=== PATIENT | female | born 1995 | race Caucasian/White ===

== ENCOUNTER → 2023-05-07 15:46 | Outpatient (BNVA) | payer SELFPAY | PROVIDERS: Family Provider Family Medicine; Visit Provider Emergency Medicine | DX: J02.9 Acute pharyngitis, unspecified (principal) | CPT/HCPCS: 87071; 87880 ==

== ENCOUNTER 2025-03-14 06:38 | Emergency (ER) | payer MEDICAID, SELFPAY ==
[2025-03-14 06:51] VITALS: BP 133/111; PULSE 76; RESP 18; TEMP 36.6; O2SAT 100; BMI 31.1
--- NOTE | 2025-03-14 06:53 | ECG_ITS ---
[facility] Test Date: 2025-03-14 Pat Name: Xenia Gonzales Department: Room: Gender: Female Occupational Work Experience Teacher: : 1995 Requested By: Naveen Mata Order Number: [id number] Reading MD: JALEEL BOLTON Measurements Intervals [place] Rate: 64 P: 37 IL: 201 QRS: 33 QRSD: 95 T: 1 QT: 415 QTc: 430 Interpretive Statements SINUS RHYTHM NONSPECIFIC T-WAVE ABNORMALITY No previous ECG available for comparison Electronically Signed On 03-14-2025 20:58:24 CDT by JALEEL BOLTON [id number] [id number]
--- NOTE | 2025-03-14 07:02 | W.ED.NAVMDI ---
HPI - Nausea/Vomiting/Diarrhea General: Chief complaint: Nausea/Vomiting/Diarrhea Stated complaint: n,v,abd pain,hands and feet numb/tingling Time Seen by Provider: 03/14/25 06:50 History of Present Illness: 29-year-old female presents to the emergency room via private vehicle. Patient is complaining of nausea vomiting that woke up around 3 AM. She is complaining of abdominal pain due to the persistent nausea and vomiting. She also has numbness and tingling of her hands and feet she is having carpopedal spasm when she first arrived she is tachypneic extremely anxious. Patient also started having some diarrhea this morning. 4 weeks ago she started on Zepbound/Mounjaro for weight loss Associated nausea: Yes Associated symtoms: Reports nausea; Denies chest pain or dysuria Related Data Home Medications ?Medication ?Instructions ?Recorded ?Confirmed escitalopram oxalate 10 mg tablet 10 mg PO DAILY 03/14/25 03/14/25 tirzepatide (weight loss) 5 mg/0.5 5 mg SUBCUT Q7D 03/14/25 03/14/25 mL subcutaneous pen injector (Zepbound) Previous Rx's ?Medication ?Instructions ?Recorded lorazepam 2 mg tablet (Ativan) 2 mg buccal TID PRN nausea and 03/14/25 vomiting #14 tabs olanzapine 10 mg disintegrating 10 mg PO .Every 8 hours PRN nausea 03/14/25 tablet (Zyprexa Zydis) and vomiting #10 tabs Allergies Allergy/AdvReac Type Severity Reaction Status Date / Time No Known Allergies Allergy Unverified 05/07/23 15:40 Review of Systems Const: Denies: fever(s) or chills Card: Denies: chest pain Resp: Denies: dyspnea GI: Reports: abdominal pain, nausea and vomiting; Denies: hematemesis, coffee ground emesis, hematochezia or melena : Denies: dysuria, urinary frequency or urinary urgency Musc: Denies: neck pain or back pain Skin/Breast: Denies: rash Physical Exam Const: ORIENTATION/CONSCIOUSNESS: Yes awake, Yes oriented to person, Yes oriented to place and Yes oriented to time HENMT: COMMON NORMALS: normocephalic, atraumatic and hearing grossly normal bilaterally HEAD & SCALP: normocephalic and atraumatic Resp: COMMON NORMALS: normal respiratory effort, No retractions, No use of accessory muscles and clear to auscultation bilaterally AUSCULTATION: clear to auscultation bilaterally Cardio: COMMON NORMALS: regular rate, regular rhythm and No murmurs present (Cardio) RATE: regular rate RHYTHM: regular rhythm GI: COMMON NORMALS: Soft to palpation and No hepatosplenomegaly present AUSCULTATION: Yes normoactive bowel sounds PALPATION: Yes Soft to palpation, No Tenderness to palpation present (GI), No Guarding due to palpation present (GI) and Yes No hepatosplenomegaly present Extremity: COMMON NORMALS: normal to inspection, capillary refill normal, no clubbing, cyanosis or edema, no calf tenderness and no pedal edema Neuro: SENSORIUM/ORIENTATION: Yes oriented to person, Yes oriented to place and Yes oriented to time Skin: COMMON NORMALS: no rashes or lesions noted GENERAL SKIN EXAM: no rashes or lesions noted Course Vital Signs: Vital signs: Vital Signs Temperature 97.8 F 03/14/25 06:51 Pulse Rate 62 03/14/25 09:00 Respiratory Rate 18 03/14/25 06:51 Blood Pressure 100/66 03/14/25 09:00 Pulse Oximetry 100 03/14/25 09:00 Oxygen Delivery Me thod Room Air 03/14/25 09:00 MDM - Nausea/Vomiting/Diarrhea Medical Decision Making Improved with Haldol and Benadryl. She was hyperventilating. In talking with her she is also used a lot of cannabis over the weekend which I think contributed to this significantly. Discussed with her cannabinoid hyperemesis syndrome. Will discharge her home with olanzapine Ativan to use as needed if has recurrence of symptoms. Medical Records I reviewed the patient's medical records. Lab Data I reviewed the patient's lab results. 03/14/25 07:00 03/14/25 07:00 Laboratory Results WBC 10.88 10^3/uL (3.29-11.43) 03/14/25 07:00 RBC 4.72 10^6/uL (3.85-5.65) 03/14/25 07:00 Hgb 14.50 g/dL (11.27-16.99) 03/14/25 07:00 Hct 42.7 % (36-47) 03/14/25 07:00 MCV 90.5 fl (85-98) 03/14/25 07:00 MCH 30.7 pg (27-33) 03/14/25 07:00 MCHC 34.0 g/dL (30-55) 03/14/25 07:00 RDW 11.9 % (12.1-15.1) L 03/14/25 07:00 Plt Count 364 10^3/cmm (157-399) 03/14/25 07:00 MPV 10.6 fL (7.4-10.4) H 03/14/25 07:00 Neut % (Auto) 49.2 % 03/14/25 07:00 Lymph % (Auto) 44.6 % 03/14/25 07:00 Clayton % (Auto) 3.6 % 03/14/25 07:00 Eos % (Auto) 1.7 % 03/14/25 07:00 Baso % (Auto) 0.6 % 03/14/25 07:00 Neut # (Auto) 5.36 10^3/uL (1.8-7.7) 03/14/25 07:00 Lymph # (Auto) 4.9 10^3/uL (0.8-4.8) H 03/14/25 07:00 [place] # (Auto) 0.4 10^3/uL (0.2-0.9) 03/14/25 07:00 Eos # (Auto) 0.2 10^3/uL (0.0-0.8) 03/14/25 07:00 Baso # (Auto) 0.1 10^3/uL (0.0-0.1) 03/14/25 07:00 Nucleated RBC % (auto) 0 % 03/14/25 07:00 Nucleated RBCs # 0.0 /100WBC 03/14/25 07:00 Specimen Type Arterial 03/14/25 06:55 Sample Site Radial, right 03/14/25 06:55 ABG pH 7.63 (7.35-7.45) H* 03/14/25 06:55 ABG pCO2 17.3 mmHg (35-45) L* 03/14/25 06:55 ABG pO2 117.0 mmHg (80.0-100.0) H 03/14/25 06:55 ABG PO2/FiO2 Ratio 557 03/14/25 06:55 ABG HCO3 18.0 mmol/L (22-26) L 03/14/25 06:55 ABG O2 Saturation > 99.1 03/14/25 06:55 ABG Base Excess -0.2 mmol/L (-2.0-2.0) 03/14/25 06:55 Patric Test Pos 03/14/25 06:55 A-a O2 Gradient 1.1 mmHg (5-10) L 03/14/25 06:55 Hematocrit 45.5 % (37-47) 03/14/25 06:55 Hgb O2 Saturation 97.5 % (95-100) 03/14/25 06:55 Carboxyhemoglobin 1.4 %THgb (0.4-20.1) 03/14/25 06:55 Methemoglobin 0.9 % (0.4-1.5) 03/14/25 06:55 Total Hemoglobin 14.9 g/dL (12-16) 03/14/25 06:55 Sodium 141.0 mmol/L (131-143) 03/14/25 06:55 Potassium 2.8 mmol/L (3.5-5.0) L 03/14/25 06:55 Glucose 134.0 mg/dL (70-115) H 03/14/25 06:55 Ionized Calcium 1.1 mmol/L (1.1-1.4) 03/14/25 06:55 O2 Delivery Device Room air 03/14/25 06:55 FiO2 21.0 % 03/14/25 06:55 Color Paste Mixing Supervisor ID [id number] 03/14/25 06:55 Sodium 140 mmol/L (136-145) 03/14/25 07:00 Potassium 3.0 mmol/L (3.5-5.1) L 03/14/25 07:00 Chloride 101 mmol/L (98-107) 03/14/25 07:00 Carbon Dioxide 17 mmol/L (22-29) L 03/14/25 07:00 Anion Gap 25.0 (5-19) H 03/14/25 07:00 BUN 12 mg/dL (6-20) 03/14/25 07:00 Creatinine 0.8 mg/dL (0.5-0.9) 03/14/25 07:00 GFR Calculation 85.4 mL/min (90-130) L 03/14/25 07:00 Glucose 132 mg/dL (65-115) H 03/14/25 07:00 Calculated Osmolality 292 mOsm/kg (285-295) 03/14/25 07:00 Calcium 9.9 mg/dL (8.5-10.5) 03/14/25 07:00 Magnesium 1.7 mg/dL (1.7-2.3) 03/14/25 07:00 Total Bilirubin 0.4 mg/dL (0.15-1.2) 03/14/25 07:00 AST 18 U/L (0-32) 03/14/25 07:00 ALT 12 U/L (0-33) 03/14/25 07:00 Alkaline Phosphatase 104 U/L (35-105) 03/14/25 07:00 Total Protein 8.0 g/dL (6.6-8.7) 03/14/25 07:00 Albumin 4.6 g/dL (3.5-5.2) 03/14/25 07:00 Globulin 3.4 g/dL (1.3-4.6) 03/14/25 07:00 HCG, Qual Negative (Negative) 03/14/25 07:00 Urine Color Yellow (Yellow) 03/14/25 07:00 Urine Appearance Clear (CLEAR) 03/14/25 07:00 Urine pH 8.0 (5-7) A 03/14/25 07:00 Ur Specific Paige 1.016 (1.005-1.030) 03/14/25 07:00 Urine Protein Negative (Negative) 03/14/25 07:00 Urine Glucose (UA) Negative (Normal) 03/14/25 07:00 Urine Ketones 2+ (Negative) H 03/14/25 07:00 Urine Blood 2+ (Negative) A 03/14/25 07:00 Urine Nitrate Negative (Negative) 03/14/25 07:00 Urine Bilirubin Negative (Negative) 03/14/25 07:00 Urine Urobilinogen 1.0 mg/dL (Negative) 03/14/25 07:00 Ur Leukocyte Esterase Trace (Negative) A 03/14/25 07:00 Urine RBC 11-20 /hpf (0-2) H 03/14/25 07:00 Urine WBC 11-20 /hpf (0-5) H 03/14/25 07:00 Ur Squamous Epith Cells 0-5 /hpf (0-5) 03/14/25 07:00 Amorphous Sediment Not Reportable 03/14/25 07:00 Urine Bacteria 2+ /hpf (NONE) H 03/14/25 07:00 Hyaline Casts 3.71 /lpf 03/14/25 07:00 All radiology interpretation(s) finalized by discharge Discharge Plan Discharge Patient Disposition: Home Clinical Impression: Cannabinoid hyperemesis syndrome, Hyperventilation Condition: Stable Prescriptions: New olanzapine [Zyprexa Zydis] 10 mg tablet,disintegrating 10 mg PO .Every 8 hours PRN (Reason: nausea and vomiting) Qty: 10 0RF lorazepam [Ativan] 2 mg tablet 2 mg buccal TID PRN (Reason: nausea and vomiting) Qty: 14 0RF No Action escitalopram oxalate 10 mg tablet 10 mg PO DAILY Zepbound 5 mg/0.5 mL pen injector 5 mg SUBCUT Q7D Discharge Orders: Discharge ED (Routine); Ordered 03/14/25 Ordered By: Naveen Luo Discharge Diet: Clear Liquid Discharge Activity: Increase activity as tolerated Patient Instructions: Opioid Safety, Pain Management Activity Restrictions/Additional Instructions: Thank you for choosing [facility] for your healthcare needs today. It is very important that you follow up as instructed or that you return to the Emergency Department should you have concerns or if your condition changes or worsens in any way. You were seen in the emergency room with complaints of nausea and vomiting. Based on your history and your laboratory studies as well as your reaction to medications it is most likely caused by cannabinoid hyperemesis syndrome. Recommend you decrease the amount of cannabinoid products you use. You were also hyperventilating this improved with the medications given as well follow-up with your primary care doctor as needed. You are given lorazepam and olanzapine to use as needed if you have recurrent nausea and vomiting. Print Language: Paraguayan Coding Level of Care Code ED Inside Sales Account Executive for Jodi Ellis
[2025-03-14 07:11] LABS: ABG PCO2 17.3 mmHg (35-45); ABG PH Result 7.63 (7.35-7.45); Alveolar-Arterial Oxygen Gradi 1.1 mmHg (5-10); Arterial Blood Gas Hematocrit 45.5 % (37-47); Base Excess ABG -0.2 mmol/L (-2.0-2.0); Blood Gas Allen Test Pos; Blood Gas Operator Identificat MBB; Blood Gas Sample Site Radial, right; Blood Gas Sample Type Arterial; Carboxyhemoglobin 1.4 %THgb (0.4-20.1); HGB O2 Sat 97.5 % (95-100); Ionized Calcium Level - ABG 1.1 mmol/L (1.1-1.4); Methemoglobin 0.9 % (0.4-1.5); Oxygen Device ROOM AIR; Oxygen Saturation ABG > 99.1; PO2 FiO2 Ratio Arterial Blood 557; Potassium Level - ABG 2.8 mmol/L (3.5-5.0); Total Hemoglobin 14.9 g/dL (12-16)
[2025-03-14 07:14] LABS: Basophils # 0.1 10^3/uL (0.0-0.1); Basophils % 0.6 %; Eosinophils # 0.2 10^3/uL (0.0-0.8); Eosinophils % 1.7 %; Hematocrit 42.7 % (36-47); Lymphocytes # 4.9 10^3/uL (0.8-4.8); Lymphocytes % 44.6 %; Mean Corpuscular Hemoglobin 30.7 pg (27-33); Mean Corpuscular Volume 90.5 fl (85-98); Mean Platelet Volume 10.6 fL (7.4-10.4); Monocytes # 0.4 10^3/uL (0.2-0.9); Monocytes % 3.6 %; Neutrophils # 5.36 10^3/uL (1.8-7.7); Neutrophils % 49.2 %; Nucleated Red Blood Cells % 0 %; Platelet Count 364 10^3/cmm (157-399); Red Blood Count 4.72 10^6/uL (3.85-5.65); Red Cell Distribution Width 11.9 % (12.1-15.1); White Blood Count 10.88 10^3/uL (3.29-11.43)
[2025-03-14 07:23] LABS: Bilirubin Urine Negative (Negative); Blood Urine 2+ (Negative); Glucose Urine UA Negative (Normal); Ketones Urine 2+ (Negative); Leukocyte Esterase Urine Trace (Negative); Nitrate Urine Negative (Negative); Protein Urine Negative (Negative); Specific Gravity, Urine 1.016 (1.005-1.030); Urine Appearance Clear (CLEAR); Urine Color Yellow (Yellow)
[2025-03-14 07:25] LABS: Add Urine Microscopic? YES; Bacteria Urine 2+ /hpf; Hyaline Casts Urine 3.71 /lpf; Squamous Epithelial Cell Urine 0-5 /hpf (0-5)
[2025-03-14 07:28] LABS: HCG, Serum Qual Negative (Negative)
[2025-03-14] MEDS: sodium chloride 0.9% 1,000 ML 999 ML IV ×2 (07:32→09:04)
[2025-03-14] MEDS: diphenhydrAMINE 50 mg/mL SDV 1mL IVP (07:33)
[2025-03-14] MEDS: haloperidol inj 5 mg/mL INJ 1 mL 2.5 MG IVP (07:34)
[2025-03-14 07:38] LABS: UA Slide Review UA Slide Review Perf
[2025-03-14 07:39] LABS: Add Urine Culture? Yes
[2025-03-14 07:41] LABS: Alanine Aminotransferase 12 U/L (0-33); Albumin Level 4.6 g/dL (3.5-5.2); Alkaline Phosphatase 104 U/L (35-105); Aspartate Amino Transferase 18 U/L (0-32); Blood Urea Nitrogen 12 mg/dL (6-20); Calcium 9.9 mg/dL (8.5-10.5); Carbon Dioxide 17 mmol/L (22-29); Creatinine Clr Calc Pharmacy 100.6614; Globulin 3.4 g/dL (1.3-4.6); Glomerular Filtration Rate 85.4 mL/min (90-130); Glucose 132 mg/dL (65-115); Total Bilirubin 0.4 mg/dL (0.15-1.2)
[2025-03-14 07:51] VITALS: BP 107/66; PULSE 64; O2SAT 99
[2025-03-14 08:08] LABS: Chloride 101 mmol/L (98-107); Osmolality Calculated 292 mOsm/kg (285-295); Sodium 140 mmol/L (136-145)
[2025-03-14 09:00] VITALS: BP 100/66; PULSE 62; O2SAT 100
[2025-03-14] MEDS: cefTRIAXone 1,000 mg SDV 1000 MG IVP (09:06)
[2025-03-14] MEDS: potassium chloride oral liq 20 mEq/15 mL UDC 40 MEQ PO (09:52)
[2025-03-14 10:36] LABS: Magnesium 1.7 mg/dL (1.7-2.3)
== END 2025-03-14 11:29 | disposition home or self-care (01) ==
PROVIDERS: Emergency Provider Family Medicine
DX: R11.2 Nausea with vomiting, unspecified (principal); R06.4 Hyperventilation
CPT/HCPCS: 36415; 36600; 80051; 80053; 81001; 82330; 82805; 83735; 84703; 85025; 87086; 93005; 96361; 96374; 96375; 99284; J0696; J1200; J1630; J7030; J9999

== ENCOUNTER 2025-07-03 16:46 | Emergency (ER) | payer MEDICAID, SELFPAY ==
--- OUTSIDE RECORDS SUMMARY | 2025-07-03 16:52 | XMS_ITS | Clinical Summary ---
[facility] Address [address] [place] [address] Care Team Providers Care Marine Service Operator Name Role Phone Unavailable Primary Care Provider Unavailabl e Immunizations Immunization Administration Dates Next Due (M-M-R II/PRIORIX)(12 MO UP) MEASLES, MUMPS AND RUBELLA VIRUS VACCINE, 0.5 ML IM/SUBCUT 06/28/2002,04/26/1999 (VARIVAX)(12 MOS UP)VARICELL A VIRUS VACCINE (PF) 0.5 ML, SUB CUT 06/28/2002 Dt Dtp Dtap Vaccine 06/28/2002, 9,04/26/1999,1996 HIB, Unspecified Formulation 04/26/1999,06/13/19 97 Hepatitis B Vaccine 06/13/1999,06/13/1997,1995 IPV/OPV 06/28/2002, 9,04/26/1999,1996 Social History Tobacco Use Types Packs/Day Years Used Date Smoking Tobacco: Never Assessed Comments Unknown Sex and Gender Information Value Date Recorded Sex Assigned at Not on file Legal Sex Female 3:13 AM THERAPIST PHYSICAL Gender Identity Not on file Sexual Orientation Not on file Plan of Treatment Health Maintenance Due Date Last Done Comments DTAP/TDAP/TD VACCINES (5 - Tdap) 2007 06/28/2002, 06/13/1999, 04/26/1999, Additional history exists HPV VACCINES (1 - 3-dose series) 2011 CERVICAL CANCER SCREENING 2017 HPV/Cotest (21-29) 2017 PAP SMEAR 2017 INFLUENZA VACCINE (#1) 2025 HEPATITIS B VACCINES Completed 06/13/1999, 06/13/1997, 1996 Insurance MEDICAID [id number]
--- OUTSIDE RECORDS SUMMARY | 2025-07-03 16:52 | XMS_ITS | Encounter Summary ---
Author Organization [facility] Address [address] [place] [address] Care Team Providers Care Faculty Research Physician Name Role Phone Unavailable Primary Care Provider Unavailabl e Encounter Details Date Type Department Care Team (Latest Contact Info) Description 11/19/2004 Outpatient Historical [facility] Dermatology- [facility] [place] [address] [place] [address] Bautista Kenyon MD NO ADDRESS ON FILE VIRAL WARTS NOS (Primary Dx) Social History Tobacco Use Types Packs/Day Years Used Date Smoking Tobacco: Never Assessed Comments Unknown Sex and Gender Information Value Date Recorded Sex Assigned at Not on file Legal Sex Female 3:13 AM HEALTH CARE FACILITIES INSPECTOR Gender Identity Not on file Sexual Orientation Not on file documented as of this encounter Plan of Treatment Not on file documented as of this encounter Visit Diagnoses Diagnosis Viral warts, unspecified- Primary documented in this encounter
--- OUTSIDE RECORDS SUMMARY | 2025-07-03 16:52 | XMS_ITS | Encounter Summary ---
Author Organization [facility] Address [address] [place] [address] Care Team Providers Care Loading And Unloading Supervisor Name Role Phone Unavailable Primary Care Provider Unavailabl e Encounter Details Date Type Department Care Team (Latest Contact Info) Description 03/14/2005 Outpatient Historical [facility] Dermatology- [facility] [address] [place] [address] Bautista Kenyon MD NO ADDRESS ON FILE VIRAL WARTS NOS (Primary Dx) Social History Tobacco Use Types Packs/Day Years Used Date Smoking Tobacco: Never Assessed Comments Unknown Sex and Gender Information Value Date Recorded Sex Assigned at Not on file Legal Sex Female 3:13 AM RN CARDIAC CATH Gender Identity Not on file Sexual Orientation Not on file documented as of this encounter Plan of Treatment Not on file documented as of this encounter Visit Diagnoses Diagnosis Viral warts, unspecified- Primary documented in this encounter
--- OUTSIDE RECORDS SUMMARY | 2025-07-03 16:52 | XMS_ITS | Encounter Summary ---
Author Organization [facility] Address [address] [place] [address] Care Team Providers Care Squirrel Worker Name Role Phone Unavailable Primary Care Provider Unavailabl e Encounter Details Date Type Department Care Team (Latest Contact Info) Description 10/19/2004 Outpatient Historical [facility] Dermatology- [facility] [address] [place] [address] Bautista Kenyon MD NO ADDRESS ON FILE VIRAL WARTS NOS (Primary Dx) Social History Tobacco Use Types Packs/Day Years Used Date Smoking Tobacco: Never Assessed Comments Unknown Sex and Gender Information Value Date Recorded Sex Assigned at Not on file Legal Sex Female 3:13 AM ORCHID GROWER Gender Identity Not on file Sexual Orientation Not on file documented as of this encounter Plan of Treatment Not on file documented as of this encounter Visit Diagnoses Diagnosis Viral warts, unspecified- Primary documented in this encounter
--- OUTSIDE RECORDS SUMMARY | 2025-07-03 16:52 | XMS_ITS | Encounter Summary ---
Author Organization [facility] Address [address] [place] [address] Care Team Providers Care Telemetry Rn Name Role Phone Unavailable Primary Care Provider Unavailabl e Encounter Details Date Type Department Care Team (Latest Contact Info) Description 04/04/2005 Outpatient Historical [facility] Dermatology- [facility] [address] [place] [address] Bautista Kenyon MD NO ADDRESS ON FILE VIRAL WARTS NOS (Primary Dx) Social History Tobacco Use Types Packs/Day Years Used Date Smoking Tobacco: Never Assessed Comments Unknown Sex and Gender Information Value Date Recorded Sex Assigned at Not on file Legal Sex Female 3:13 AM CLIENT ACCOUNT REPRESENTATIVE Gender Identity Not on file Sexual Orientation Not on file documented as of this encounter Plan of Treatment Not on file documented as of this encounter Visit Diagnoses Diagnosis Viral warts, unspecified- Primary documented in this encounter
--- OUTSIDE RECORDS SUMMARY | 2025-07-03 16:52 | XMS_ITS | Encounter Summary ---
Author Organization [facility] Address [address] [place] [address] Care Team Providers Care Community Arts Centre Manager Name Role Phone Unavailable Primary Care Provider Unavailabl e Encounter Details Date Type Department Care Team (Latest Contact Info) Description 12/14/2004 Outpatient Historical [facility] Dermatology- [facility] [address] [place] [address] Bautista Kenyon MD NO ADDRESS ON FILE VIRAL WARTS NOS (Primary Dx) Social History Tobacco Use Types Packs/Day Years Used Date Smoking Tobacco: Never Assessed Comments Unknown Sex and Gender Information Value Date Recorded Sex Assigned at Not on file Legal Sex Female 3:13 AM COMPUTATIONAL CHEMIST Gender Identity Not on file Sexual Orientation Not on file documented as of this encounter Plan of Treatment Not on file documented as of this encounter Visit Diagnoses Diagnosis Viral warts, unspecified- Primary documented in this encounter
[2025-07-03 17:03] VITALS: BP 121/79; PULSE 105; RESP 18; TEMP 37.3; O2SAT 100
--- NOTE | 2025-07-03 17:19 | XRR_ITS ---
PROCEDURE INFORMATION: Exam: XR Abdomen Exam date and time: 07/03/2025 5:32 PM Age: 29 years old Clinical indication: Constipation; Prior surgery; Surgery date: 6+ months; Surgery type: Csection x 2; Additional info: Constipation; Abdominal pain; Nausea; Recent increase in dose ofweight loss shot; Iud insertion x 1 mo ago TECHNIQUE: Imaging protocol: Radiologic exam of the abdomen. Views: Frontal supine view of the abdomen. 1 View. COMPARISON: No relevant prior studies available. FINDINGS: Gastrointestinal tract: Moderate stool in the ascending colon. Normal bowel gas pattern. Organs: IUD overlies the pelvis. Bones/joints: Unremarkable. XR/XR KUB [id number] IMPRESSION: Moderate stool in the proximal colon.
--- NOTE | 2025-07-03 17:21 | W.ED.NAVMDI ---
HPI - Nausea/Vomiting/Diarrhea General: Chief complaint: Nausea/Vomiting/Diarrhea Stated complaint: N/V, CONSTIPATION Time Seen by Provider: 07/03/25 17:16 Source: patient Mode of arrival: ambulatory Limitations: no limitations History of Present Illness: 29-year-old female who states that she recently increased her weight loss medication from 5-7.5 states of last 2 days she has been having nausea vomiting some abdominal cramping states she is also had some slight constipation. She denies any severe abdominal pain she denies any fevers or dysuria denies any worse improving factors. She states she had a similar problem when she had increased it before Associated nausea: Yes Associated symtoms: Reports nausea; Denies chest pain, dysuria or headache(s) Related Data Home Medications ?Medication ?Instructions ?Recorded ?Confirmed tirzepatide (weight loss) 5 mg/0.5 5 mg SUBCUT Q7D 03/14/25 03/14/25 mL subcutaneous pen injector (Zepbound) methadone 40 mg soluble tablet 85 mg PO DAILY 06/20/25 06/20/25 ondansetron HCl 4 mg tablet 4 mg PO DAILY 06/20/25 06/20/25 Previous Rx's ?Medication ?Instructions ?Recorded ondansetron 4 mg disintegrating 4 mg PO Q6H PRN nausea and 07/03/25 tablet vomiting #14 tabs polyethylene glycol 3350 17 gram 17 g PO DAILY PRN constipation #14 07/03/25 oral powder packet (Miralax) ea Allergies Allergy/AdvReac Type Severity Reaction Status Date / Time No Known Allergies Allergy Unverified 06/20/25 07:27 Review of Systems Const: Denies: fever(s), chills or body aches Eyes: Denies: blurry vision or eye discomfort ENMT: Denies: throat pain or dental pain Card: Denies: chest pain Resp: Denies: dyspnea GI: Reports: abdominal pain, nausea, vomiting and constipation; Denies: diarrhea : Denies: dysuria Musc: Denies: neck pain or back pain Skin/Breast: Denies: rash Neuro: Denies: headache(s) PFSH ED PFSH: Medical History Secondary amenorrhea Methadone dependence Family History (Updated 06/17/25 @ 11:03 by Nikki Crews RN) Father Hypertension Hyperlipidemia Diabetes Sister Hypertension Social History Smoking and tobacco/nicotine status: never used tobacco/nicotine Physical Exam Const: COMMON NORMALS: no acute distress, patient oriented x3 and healthy appearing HENMT: COMMON NORMALS: normocephalic and atraumatic HEAD & SCALP: normocephalic and atraumatic Eye: COMMON NORMALS: conjunctivae normal CONJUNCTIVA: Yes conjunctivae normal Neck/C-Spine: COMMON NORMALS: full ROM and supple Chest: COMMONS NORMALS: normal inspection of the chest and normal palpation of entire chest wall Resp: COMMON NORMALS: normal respiratory effort, No retractions, No use of accessory muscles and clear to auscultation bilaterally AUSCULTATION: clear to auscultation bilaterally Cardio: COMMON NORMALS: regular rate, regular rhythm and No murmurs present (Cardio) RATE: regular rate RHYTHM: regular rhythm GI: COMMON NORMALS: Normal to inspection, nondistended, normoactive bowel sounds present, Soft to palpation, non-tender and no masses PALPATION: Yes Soft to palpation Extremity: COMMON NORMALS: normal to inspection and full ROM Neuro: COMMON NORMALS: patient oriented x3, moves all extremities and no focal motor deficits Psych: COMMON NORMALS: mental status grossly normal, Normal thought process present and cooperative THOUGHT PROCESS: Normal thought process present Skin: COMMON NORMALS: no rashes or lesions noted and no wounds GENERAL SKIN EXAM: no rashes or lesions noted Course Vital Signs: Vital signs: Vital Signs Temperature 99.1 F 07/03/25 17:03 Pulse Rate 77 07/03/25 19:54 Respiratory Rate 16 07/03/25 19:54 Blood Pressure 124/61 07/03/25 19:54 Pulse Oximetry 98 07/03/25 19:54 Oxygen Delivery Me thod Room Air 07/03/25 17:03 MDM - Nausea/Vomiting/Diarrhea Medical Decision Making Patient presents here with vomiting she also some constipation blood work x-ray is normal besides constipation she has no signs of acute surgical abdomen her abdomen soft nontender she feels much improved here after meds she is stable for discharge follow-up PCP return if worsening. Medical Records I reviewed the patient's medical records. Lab Data I reviewed the patient's lab results. 07/03/25 17:26 07/03/25 17: Radiology Impressions KUB X-Ray 07/03/25 17:19 IMPRESSION: Moderate stool in the proximal colon. Laboratory Results WBC 6.65 10^3/uL (3.29-11.43) 07/03/25 17: RBC 4.36 10^6/uL (3.85-5.65) 07/03/25: Hgb 13.50 g/dL (11.27-16.99) 07/03/25: Hct 38.7 % (36-47) 07/03/25 17: MCV 88.8 fl (85-98) 07/03/25: MCH 31.0 pg (27-33) 07/03/25: MCHC 34.9 g/dL (30-55) 07/03/25: RDW 12.3 % (12.1-15.1) 07/03/25: Plt Count 256 10^3/cmm (157-399) 07/03/25: MPV 11.1 fL (7.4-10.4) H 07/03/25: Neut % (Auto) 87.0 % 07/03/25: Lymph % (Auto) 8.1 % 07/03/25: [place] % (Auto) 4.2 % 07/03/25: Eos % (Auto) 0.0 % 07/03/25: Baso % (Auto) 0.2 % 07/03/25: Neut # (Auto) 5.79 10^3/uL (1.8-7.7) 07/03/25: Lymph # (Auto) 0.5 10^3/uL (0.8-4.8) L 07/03/25: [place] # (Auto) 0.3 10^3/uL (0.2-0.9) 07/03/25: Eos # (Auto) 0.0 10^3/uL (0.0-0.8) 07/03/25: Baso # (Auto) 0.0 10^3/uL (0.0-0.1) 08/17/25 17:26 Nucleated RBC % (auto) 0 % 07/03/25 17: Nucleated RBCs # 0.0 /100WBC 07/03/25 17: Sodium 139 mmol/L (136-145) 07/03/25 17: Potassium 3.2 mmol/L (3.5-5.1) L 07/03/25 17: Chloride 100 mmol/L (98-107) 07/03/25 17: Carbon Dioxide 24 mmol/L (22-29) 07/03/25 17: Anion Gap 18.2 (5-19) 07/03/25 17: BUN 14 mg/dL (6-20) 07/03/25 17: Creatinine 0.7 mg/dL (0.5-0.9) 07/03/25 17: GFR Calculation 99.6 mL/min (90-130) 07/03/25 17: Glucose 103 mg/dL (65-115) 07/03/25 17: Calculated Osmolality 289 mOsm/kg (285-295) 07/03/25 17: Calcium 9.5 mg/dL (8.5-10.5) 07/03/25 17: Total Bilirubin 0.4 mg/dL (0.15-1.2) 07/03/25 17: AST 16 U/L (0-32) 07/03/25 17: ALT 10 U/L (0-33) 07/03/25 17: Alkaline Phosphatase 90 U/L (35-105) 07/03/25 17: Total Protein 7.9 g/dL (6.6-8.7) 07/03/25 17: Albumin 4.6 g/dL (3.5-5.2) 07/03/25 17: Globulin 3.3 g/dL (1.3-4.6) 07/03/25 17: Lipase 30 U/L (13-60) 07/03/25 17: HCG, Qual Negative (Negative) 07/03/25 17:26 Urine Color Yellow (Yellow) 07/03/25 18:00 Urine Appearance Clear (CLEAR) 07/03/25 18:00 Urine pH 7.5 (5-7) 07/03/25 18:00 Ur Specific [place] 1.024 (1.005-1.030) 07/03/25 18:00 Urine Protein Trace (Negative) A 07/03/25 18:00 Urine Glucose (UA) Negative (Normal) 07/03/25 18:00 Urine Ketones 4+ (Negative) 07/03/25 18:00 Urine Blood 2+ (Negative) A 07/03/25 18:00 Urine Nitrate Negative (Negative) 07/03/25 18:00 Urine Bilirubin Negative (Negative) 07/03/25 18:00 Urine Urobilinogen 1.0 mg/dL (Negative) 07/03/25 18:00 Ur Leukocyte Esterase Negative (Negative) 07/03/25 18:00 Urine RBC 5-10 /hpf (0-2) H 07/03/25 18:00 Urine WBC 0-4 /hpf (0-5) H 07/03/25 18:00 Ur Squamous Epith Cells 10-15 /hpf (0-5) H 07/03/25 18:00 Amorphous Sediment Not Reportable 07/03/25 18:00 Urine Bacteria 2+ /hpf (NONE) H 07/03/25 18:00 Hyaline Casts 5-10 /lpf H 07/03/25 18:00 Urine Mucus 2+ /hpf 07/03/25 18:00 All radiology interpretation(s) finalized by discharge Discharge Plan Discharge Patient Disposition: Home Clinical Impression: Vomiting, Constipation Condition: Stable Prescriptions: New ondansetron 4 mg tablet,disintegrating 4 mg PO Q6H PRN (Reason: nausea and vomiting) Qty: 14 0RF polyethylene glycol 3350 [Miralax] 17 gram powder in packet 17 g PO DAILY PRN (Reason: constipation) Qty: 14 0RF No Action ondansetron HCl 4 mg tablet 4 mg PO DAILY methadone 40 mg tablet,soluble 85 mg PO DAILY Zepbound 5 mg/0.5 mL pen injector 5 mg SUBCUT Q7D Discharge Orders: Discharge ED (Routine); Ordered 07/03/25 Ordered By: Babak Pérez Referrals: Allyson Wooten PA [Primary Care Provider, Physicians Looping Inspector] - 4-7 days Discharge Diet: Advance as tolerated Discharge Activity: Resume usual activity Patient Instructions: Constipation (ED), Acute Nausea and Vomiting (ED) Print Language: Swedish Coding Level of Care Code ED Seat Joiner for Chg Rhonda
[2025-07-03 17:33] LABS: Hematocrit 38.7 % (36-47); Hemoglobin 13.50 g/dL (11.27-16.99); Mean Corpuscular HGB Conc 34.9 g/dL (30-55); Mean Corpuscular Hemoglobin 31.0 pg (27-33); Mean Corpuscular Volume 88.8 fl (85-98); Nucleated Red Blood Cells % 0 %; Platelet Count 256 10^3/cmm (157-399); Red Blood Count 4.36 10^6/uL (3.85-5.65); White Blood Count 6.65 10^3/uL (3.29-11.43)
[2025-07-03 17:47] LABS: HCG, Serum Qual Negative (Negative)
[2025-07-03] MEDS: ondansetron 2 mg/ML SDV 2 mL 4 MG IVP (17:47)
[2025-07-03 18:06] LABS: Alanine Aminotransferase 10 U/L (0-33); Albumin Level 4.6 g/dL (3.5-5.2); Alkaline Phosphatase 90 U/L (35-105); Anion Gap 18.2 (5-19); Aspartate Amino Transferase 16 U/L (0-32); Blood Urea Nitrogen 14 mg/dL (6-20); Calcium 9.5 mg/dL (8.5-10.5); Carbon Dioxide 24 mmol/L (22-29); Chloride 100 mmol/L (98-107); Creatinine Clr Calc Pharmacy 104.7600; Globulin 3.3 g/dL (1.3-4.6); Glucose 103 mg/dL (65-115); Lipase 30 U/L (13-60); Osmolality Calculated 289 mOsm/kg (285-295); Potassium 3.2 mmol/L (3.5-5.1); Sodium 139 mmol/L (136-145); Total Protein 7.9 g/dL (6.6-8.7)
[2025-07-03] MEDS: lactulose oral liq 20 gm/30 mL UDC 30 GM PO (18:11)
[2025-07-03 18:19] LABS: Glucose Urine UA Negative (Normal); Nitrate Urine Negative (Negative); Specific Gravity, Urine 1.024 (1.005-1.030)
[2025-07-03 18:35] VITALS: BP 118/76; PULSE 83; O2SAT 99
[2025-07-03 18:45] LABS: UA Manual Slide Review YES
[2025-07-03 18:46] LABS: Add Urine Microscopic? YES
[2025-07-03] MEDS: diphenhydrAMINE 50 mg/mL SDV 1mL IVP (18:52)
[2025-07-03] MEDS: metoclopramide 5 mg/mL SDV 2 mL 10 MG IVP (18:52)
[2025-07-03 19:54] VITALS: BP 124/61; PULSE 77; RESP 16; O2SAT 98
== END 2025-07-03 19:55 | disposition home or self-care (01) ==
PROVIDERS: Emergency Provider Emergency Medicine; PCP Physician Assistant
DX: R11.10 Vomiting, unspecified (principal); K59.00 Constipation, unspecified
CPT/HCPCS: 36415; 74018; 80053; 81001; 83690; 84703; 85025; 96361; 96374; 96375; 99284; J1200; J2405; J2765; J7030; J9999

== ENCOUNTER 2025-07-04 10:32 | Emergency (ER) | payer MEDICAID, SELFPAY ==
[2025-07-04 10:36] VITALS: BP 119/81; PULSE 96; TEMP 36.8; O2SAT 99; BMI 25.6
--- OUTSIDE RECORDS SUMMARY | 2025-07-04 10:36 | XMS_ITS | Encounter Summary ---
Author Organization [facility] Address [address] [place] [address] Care Team Providers Care Geomatics Professor Name Role Phone Unavailable Primary Care Provider Unavailabl e Encounter Details Date Type Department Care Team (Latest Contact Info) Description 10/19/2004 Outpatient Historical [facility] Dermatology- [facility] [address] [place] [address] Bautista Kenyon MD NO ADDRESS ON FILE VIRAL WARTS NOS (Primary Dx) Social History Tobacco Use Types Packs/Day Years Used Date Smoking Tobacco: Never Assessed Comments Unknown Sex and Gender Information Value Date Recorded Sex Assigned at Not on file 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
--- OUTSIDE RECORDS SUMMARY | 2025-07-04 10:36 | XMS_ITS | Encounter Summary ---
Author Organization [facility] Address [address] [place] [address] Care Team Providers Care Drum Sander Offbearer Name Role Phone Unavailable Primary Care Provider Unavailabl e Encounter Details Date Type Department Care Team (Latest Contact Info) Description 11/19/2004 Outpatient Historical [facility] Dermatology- 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
--- OUTSIDE RECORDS SUMMARY | 2025-07-04 10:36 | XMS_ITS | Encounter Summary ---
Author Organization [facility] Address [address] [place] [address] Care Team Providers Care Crew Person Name Role Phone Unavailable Primary Care Provider Unavailabl e Encounter Details Date Type Department Care Team (Latest Contact Info) Description 03/14/2005 Outpatient Historical [facility] Dermatology- [facility] [place] [address] [place] [address] Bautista Kenyon MD NO ADDRESS ON FILE VIRAL WARTS NOS (Primary Dx) Social History Tobacco Use Types Packs/Day Years Used Date Smoking Tobacco: Never Assessed Comments Unknown Sex and Gender Information Value Date Recorded Sex Assigned at Not on file 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
--- OUTSIDE RECORDS SUMMARY | 2025-07-04 10:36 | XMS_ITS | Clinical Summary ---
Author Organization [facility] Address [address] 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
--- OUTSIDE RECORDS SUMMARY | 2025-07-04 10:36 | XMS_ITS | Encounter Summary ---
Author Organization [facility] Address [address] [place] [address] Care Team Providers Care Flight Communications Officer Name Role Phone Unavailable Primary Care Provider Unavailabl e Encounter Details Date Type Department Care Team (Latest Contact Info) Description 04/04/2005 Outpatient Historical [facility] Dermatology- [facility] [place] [address] [place] [address] Bautista Kneyon MD NO ADDRESS ON FILE VIRAL WARTS NOS (Primary Dx) Social History Tobacco Use Types Packs/Day Years Used Date Smoking Tobacco: Never Assessed Comments Unknown Sex and Gender Information Value Date Recorded Sex Assigned at Not on file 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
--- OUTSIDE RECORDS SUMMARY | 2025-07-04 10:36 | XMS_ITS | Encounter Summary ---
Author Organization [facility] Address [address] [place] [address] Care Team Providers Care Cad Draftsman Name Role Phone Unavailable Primary Care Provider Unavailabl e Encounter Details Date Type Department Care Team (Latest Contact Info) Description 12/14/[address] 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
[2025-07-04 11:45] LABS: Hematocrit 38.7 % (36-47); Hemoglobin 13.70 g/dL (11.27-16.99); Mean Corpuscular HGB Conc 35.4 g/dL (30-55); Mean Corpuscular Hemoglobin 32.1 pg (27-33); Mean Corpuscular Volume 90.6 fl (85-98); Nucleated Red Blood Cells % 0 %; Platelet Count 241 10^3/cmm (157-399); Red Blood Count 4.27 10^6/uL (3.85-5.65); White Blood Count 5.77 10^3/uL (3.29-11.43)
[2025-07-04 12:04] LABS: Alanine Aminotransferase 11 U/L (0-33); Albumin Level 4.8 g/dL (3.5-5.2); Alkaline Phosphatase 89 U/L (35-105); Anion Gap 19.1 (5-19); Aspartate Amino Transferase 18 U/L (0-32); Blood Urea Nitrogen 9 mg/dL (6-20); Calcium 9.4 mg/dL (8.5-10.5); Carbon Dioxide 22 mmol/L (22-29); Chloride 101 mmol/L (98-107); Creatinine Clr Calc Pharmacy 122.2201; Globulin 3.2 g/dL (1.3-4.6); Glucose 95 mg/dL (65-115); HCG, Serum Qual Negative (Negative); Lipase 32 U/L (13-60); Osmolality Calculated 286 mOsm/kg (285-295); Potassium 3.1 mmol/L (3.5-5.1); Sodium 139 mmol/L (136-145); Total Protein 8.0 g/dL (6.6-8.7)
--- NOTE | 2025-07-04 12:18 | W.ED.NAVMDI ---
HPI - Nausea/Vomiting/Diarrhea General: Chief complaint: Nausea/Vomiting/Diarrhea Stated complaint: n/v, constipation, dehydration Time Seen by Provider: 07/04/25 12:03 Source: patient Mode of arrival: ambulatory Limitations: no limitations History of Present Illness: Patient is a 29-year-old female presents to ED today with a complaint of intractable nausea and vomiting. Patient was seen yesterday for same complaint. She states symptoms started approximately 2 days ago. She feels like it is possibly related to increasing her Zepbound from 5 mg to 7.5 mg. She states she is on this through her primary care provider, Allyson Wooten PA-C for weight loss. She also states her nausea and vomiting is worse as she has not been able to hold down her methadone and thinks she might have some withdrawal symptoms from that. She has also been diagnosed with cannabinoid hyperemesis syndrome previously. Patient is not complaining of abdominal pain. She arrives anxious appearing but with stable vital signs. MD elicited complaint: nausea and vomiting Onset (ago): day(s) Associated nausea: Yes Location of pain: None Severity: moderate Exacerbating factors: eating Relieving factors: none Associated symtoms: Reports nausea; Denies chest pain, dizziness, dysuria, fatigue, headache(s) or malaise Related Data Home Medications ?Medication ?Instructions ?Recorded ?Confirmed tirzepatide (weight loss) 5 mg/0.5 5 mg SUBCUT Q7D 03/14/25 03/14/25 mL subcutaneous pen injector (Zepbound) methadone 40 mg soluble tablet 85 mg PO DAILY 06/20/25 06/20/25 ondansetron HCl 4 mg tablet 4 mg PO DAILY 06/20/25 06/20/25 Previous Rx's ?Medication ?Instructions ?Recorded ondansetron 4 mg disintegrating 4 mg PO Q6H PRN nausea and 07/03/25 tablet vomiting #14 tabs polyethylene glycol 3350 17 gram 17 g PO DAILY PRN constipation #14 07/03/25 oral powder packet (Miralax) ea metoclopramide HCl 10 mg tablet 10 mg PO Q6H #15 tabs 07/04/25 (Reglan) Allergies Allergy/AdvReac Type Severity Reaction Status Date / Time No Known Allergies Allergy Verified 07/04/25 10:42 Review of Systems Const: Reports: chills ( cold sweats ); Denies: fever(s), body aches, fatigue or malaise Card: Denies: chest pain Resp: Denies: dyspnea GI: Reports: nausea, vomiting and constipation; Denies: abdominal pain or hematemesis : Denies: flank pain, difficulty voiding, dysuria, urinary frequency, urinary urgency or urinary hesitancy Musc: Denies: neck pain, back pain, extremity pain, extremity swelling, joint pain, joint swelling or joint redness Skin/Breast: Denies: rash Neuro: Denies: headache(s), numbness in extremities, weakness in extremities, sensory changes or dizziness [facility] ED PFSH: Medical History Secondary amenorrhea Methadone dependence Family History Father Hypertension Hyperlipidemia Diabetes Sister Hypertension Social History Smoking and tobacco/nicotine status: never used tobacco/nicotine Physical Exam Const: COMMON NORMALS: no acute distress, average body habitus, patient oriented x3, no limitations, healthy appearing, alert and well nourished GENERAL APPEARANCE: cooperative and anxious ORIENTATION/CONSCIOUSNESS: Yes awake, Yes oriented to person, Yes oriented to place and Yes oriented to time Eye: COMMON NORMALS: no scleral icterus Resp: COMMON NORMALS: normal respiratory effort and clear to auscultation bilaterally AUSCULTATION: clear to auscultation bilaterally Cardio: COMMON NORMALS: regular rate and regular rhythm RATE: regular rate RHYTHM: regular rhythm GI: COMMON NORMALS: Normal to inspection, nondistended, normoactive bowel sounds present, Soft to palpation, No hepatosplenomegaly present and no masses INSPECTION: Yes normal to inspection AUSCULTATION: Yes normoactive bowel sounds PALPATION: Yes Soft to palpation, Yes Tenderness to palpation present (GI) (mild generalized discomfort-non surgical abdomen ), No Guarding due to palpation present (GI), No Rigid due to palpation and Yes No hepatosplenomegaly present : COMMON NORMALS: Yes no CVA tenderness BLADDER/KIDNEY EXAM: Yes no CVA tenderness Back/Pelvis: COMMON NORMALS: no CVA tenderness Extremity: GENERAL: Yes normal exam except as noted Neuro: JENN COMA SCALE: document GCS findings [place] coma scale eye opening: Spontaneous [place] coma scale verbal response: Orientated Jenn coma scale motor response: Obey commands [place] coma scale total score: 15 COMMON NORMALS: patient oriented x3, moves all extremities, no focal motor deficits, no sensory deficits noted and gait normal SENSORIUM/ORIENTATION: Yes alert, Yes oriented to person, Yes oriented to place and Yes oriented to time Skin: COMMON NORMALS: no rashes or lesions noted GENERAL SKIN EXAM: no rashes or lesions noted Course Vital Signs: Vital signs: Vital Signs Temperature 98.2 F 07/04/25 10:36 Pulse Rate 96 07/04/25 10:36 Blood Pressure 119/81 07/04/25 10:36 Pulse Oximetry 99 07/04/25 10:36 Oxygen Delivery Me thod Room Air 07/04/25 10:36 MDM - Nausea/Vomiting/Diarrhea Medical Decision Making Patient is a 29-year-old female here for intractable nausea and vomiting over the past few days. Differential at this time includes gastroenteritis, cannabinoid hyperemesis syndrome, adverse GI side effects of her GLP weight loss medication, methadone withdrawal, among others. She was seen here in the emergency department yesterday. Blood work here overall is unremarkable. White count is normal. She has mild hypokalemia at 3.1. She was able to tolerate oral potassium here. She was given Benadryl and Reglan with good relief of her nausea and vomiting. She was able to hold down crackers/liquid here. On re-assessment she states she feels much better and feels comfortable going home. Recommend she follow up with PCP later this week. Return precautions discussed. Medical Records I reviewed the patient's medical records. Lab Data I reviewed the patient's lab results. 07/04/25 11:38 07/04/25 11:38 Laboratory Results WBC 5.77 10^3/uL (3.29-11.43) 07/04/25 11:38 RBC 4.27 10^6/uL (3.85-5.65) 07/04/25 11:38 Hgb 13.70 g/dL (11.27-16.99) 07/04/25 11:38 Hct 38.7 % (36-47) 07/04/25 11:38 MCV 90.6 fl (85-98) 07/04/25 11:38 MCH 32.1 pg (27-33) 07/04/25 11:38 MCHC 35.4 g/dL (30-55) 07/04/25 11:38 RDW 12.4 % (12.1-15.1) 07/04/25 11:38 Plt Count 241 10^3/cmm (157-399) 07/04/25 11:38 MPV 11.1 fL (7.4-10.4) H 07/04/25 11:38 Neut % (Auto) 84.7 % 07/04/25 11:38 Lymph % (Auto) 8.3 % 07/04/25 11:38 [place] % (Auto) 6.1 % 07/04/25 11:38 Eos % (Auto) 0.2 % 07/04/25 11:38 Baso % (Auto) 0.2 % 07/04/25 11:38 Neut # (Auto) 4.89 10^3/uL (1.8-7.7) 07/04/25 11:38 Lymph # (Auto) 0.5 10^3/uL (0.8-4.8) L 07/04/25 11:38 [place] # (Auto) 0.4 10^3/uL (0.2-0.9) 07/04/25 11:38 Eos # (Auto) 0.0 10^3/uL (0.0-0.8) 07/04/25 11:38 Baso # (Auto) 0.0 10^3/uL (0.0-0.1) 07/04/25 11:38 Nucleated RBC % (auto) 0 % 07/04/25 11:38 Nucleated RBCs # 0.0 /100WBC 07/04/25 11:38 Sodium 139 mmol/L (136-145) 07/04/25 11:38 Potassium 3.1 mmol/L (3.5-5.1) L 07/04/25 11:38 Chloride 101 mmol/L (98-107) 07/04/25 11:38 Carbon Dioxide 22 mmol/L (22-29) 07/04/25 11:38 Anion Gap 19.1 (5-19) H 07/04/25 11:38 BUN 9 mg/dL (6-20) 07/04/25 11:38 Creatinine 0.6 mg/dL (0.5-0.9) 07/04/25 11:38 GFR Calculation 119.0 mL/min (90-130) 07/04/25 11:38 Glucose 95 mg/dL (65-115) 07/04/25 11:38 Calculated Osmolality 286 mOsm/kg (285-295) 07/04/25 11:38 Calcium 9.4 mg/dL (8.5-10.5) 07/04/25 11:38 Total Bilirubin 0.4 mg/dL (0.15-1.2) 07/04/25 11:38 AST 18 U/L (0-32) 07/04/25 11:38 ALT 11 U/L (0-33) 07/04/25 11:38 Alkaline Phosphatase 89 U/L (35-105) 07/04/25 11:38 Total Protein 8.0 g/dL (6.6-8.7) 07/04/25 11:38 Albumin 4.8 g/dL (3.5-5.2) 07/04/25 11:38 Globulin 3.2 g/dL (1.3-4.6) 07/04/25 11:38 Lipase 32 U/L (13-60) 07/04/25 11:38 HCG, Qual Negative (Negative) 07/04/25 11:38 Amorphous Sediment Not Reportable 07/04/25 13:32 No radiology studies performed this visit Discharge Plan Discharge Patient Disposition: Home Clinical Impression: Vomiting Qualifiers: Vomiting type: unspecified Nausea presence: with nausea Qualified Code(s): R11.2 - Nausea with vomiting, unspecified Condition: Stable Prescriptions: New metoclopramide HCl [Reglan] 10 mg tablet 10 mg PO Q6H Qty: 15 0RF No Action ondansetron HCl 4 mg tablet 4 mg PO DAILY methadone 40 mg tablet,soluble 85 mg PO DAILY Zepbound 5 mg/0.5 mL pen injector 5 mg SUBCUT Q7D ondansetron 4 mg tablet,disintegrating 4 mg PO Q6H PRN (Reason: nausea and vomiting) Qty: 14 0RF polyethylene glycol 3350 [Miralax] 17 gram powder in packet 17 g PO DAILY PRN (Reason: constipation) Qty: 14 0RF Discharge Orders: Discharge ED (Routine); Ordered 07/04/25 Ordered By: Isa Beaver Referrals: Allyson Wooten PA [Primary Care Provider, Physicians Cost Report Clerk] Patient Instructions: Patient Portal & [place] Instructions Activity Restrictions/Additional Instructions: Please follow-up with your primary care later this week for re-evaluation of your nausea and vomiting. You may try the prescribed Reglan at home to help with nausea and vomiting as you felt like symptoms improved with that here in the emergency department. You may return to the emergency department at anytime for worsening or continued symptoms, or any other concerns you may have. Print Language: Citizen Of [place] Coding Level of Care Code ED Brush Filler Hand for Jodi Ellis
[2025-07-04] MEDS: metoclopramide 5 mg/mL SDV 2 mL 10 MG IVP (13:31)
[2025-07-04] MEDS: diphenhydrAMINE 50 mg/mL SDV 1mL IVP (13:31)
[2025-07-04 13:49] LABS: Glucose Urine UA Negative (Normal); Nitrate Urine Negative (Negative); Specific Gravity, Urine 1.024 (1.005-1.030)
[2025-07-04 14:14] LABS: Add Urine Microscopic? YES
[2025-07-04 15:15] VITALS: BP 110/78; PULSE 85; O2SAT 100
== END 2025-07-04 15:15 | disposition home or self-care (01) ==
PROVIDERS: Emergency Medicine; Emergency Provider Physician Assistant; PCP Physician Assistant
DX: R11.2 Nausea with vomiting, unspecified (principal)
CPT/HCPCS: 36415; 80053; 81001; 83690; 84703; 85025; 87086; 96374; 96375; 99284; J1200; J2765; J9999

== ENCOUNTER 2025-08-15 14:25 | Outpatient (CLI) | payer MEDICAID, SELFPAY ==
--- NOTE | 2025-08-15 14:30 | USR_ITS ---
PROCEDURE INFORMATION: Exam: US Pelvis Transabdominal, Complete, and US Pelvis Transvaginal, Non-obstetric Exam date and time: 08/15/2025 2:51 PM Age: 29 years old Clinical indication: Condition or disease; Ovarian conditions; Type of cyst not specified; Additional info: N83.201 - unspecified ovarian cyst, right side TECHNIQUE: Imaging protocol: Real-time complete transabdominal and transvaginal pelvic ultrasound (non-obstetric) with image documentation. Transvaginal imaging was used for better evaluation of the endometrium, adnexa, and/or cervix. COMPARISON: US pelv w/transvag [id number] 05/30/2025 2:00 PM FINDINGS: Uterus: The uterus measures 8 x 3.6 x 4.7 cm. An IUD is noted in normal position within the endometrial canal. The endometrium measures 4 mm. Right ovary/adnexa: There is a large cystic lesion again noted within the right ovary which measures 8.5 x 7.3 x 6.9 cm compared with 9.4 cm in greatest dimension on the previous examination. There are low-level echoes again noted throughout the cystic lesion. There has been slight interval increase in size in a hyperechoic solid nonvascular nodular area along the wall of the cyst which measures 2.2 x 2.0 x 2.1 cm compared with 0.6 x 2.1 x 2.2 cm previously. A small daughter cyst or septation is again noted along the peripheral aspect of the lesion. There is normal blood flow within the right ovary. Left ovary/adnexa: The left ovary measures 3.0 x 2.3 x 1.7 cm and contains small follicles. There is normal blood flow within the left ovary Intraperitoneal space: No intraperitoneal fluid. Urinary bladder: Normal. US/US pelv w/transvag [id number] IMPRESSION: 1. Persistent large complex cyst within the right ovary with a small daughter cyst and slight interval increase in size in a nodular hyperechoic area along the wall of the cyst. Diagnostic considerations include dermoid cyst or endometrioma versus serous cystadenoma or cystadenocarcinoma. Gynecologic consultation is suggested. 2. IUD in normal position within the endometrial canal.
== END 2025-08-15 14:26 | disposition home or self-care (01) ==
LOC: RAD 14:27
PROVIDERS: PCP Physician Assistant; Visit Provider Obstetrics & Gynecology
DX: N83.201 Unspecified ovarian cyst, right side (principal)
CPT/HCPCS: 76830; 76856